=== PATIENT | male | born 1975 | race African-American/Black ===

== ENCOUNTER 2016-11-14 19:31 | Emergency (ER) | payer OTHER ==
--- NOTE | 2016-11-14 22:21 | DIAGNOSTIC IMAGING REPORT ---
PROCEDURE: CT ABDOMEN/PELVIS W/O CONTRAST INDICATION: Hematuria and vomiting. TECHNIQUE: Noncontrast axial images were obtained of the entire abdomen and pelvis with sagittal and coronal reformations. COMPARISON: None. FINDINGS: ABDOMEN: Mild motion artifacts. Lung bases are clear. Heart size is normal. Liver, gallbladder, pancreas, spleen, adrenal glands, kidneys and abdominal aorta are normal. Nonspecific bowel gas pattern. PELVIS: IMPRESSION: 1. All CT scans at this facility use dose modulation, iterative reconstruction, and/or weight-based dosing when appropriate to reduce radiation dose to as low as reasonably achievable.
--- NOTE | 2016-11-14 22:29 | ED ORDER SUMMARY ---
..... Patient: NANCY BLEDSOE JR OrderSheet [facility] VisitID: [id number] [address] [place] [address] 41y, M Registration Date/Time: 11/14/2016 ORDER SHEET Weight: 81.6 kg Allergies: No Known Drug Allergy GENERAL ORDERS: CBC w Diff Urgent (20:21 11/14/2016 HBivens A.R.N.P.) (Ack 20:24 CHagerty ER Ovens Supervisor) (20:31 EHassan R.N.) CMP Urgent (20:21 11/14/2016 HBivens A.R.N.P.) (Ack 20:24 CHagerty ER Ovens Supervisor) (20:31 EHassan R.N.) UA-Culture if indicated Urgent (20:21 11/14/2016 HBivens A.R.N.P.) (Ack 20:24 CHagerty ER Ovens Supervisor) (20:31 EHassan R.N.) Amylase Urgent (20:21 11/14/2016 HBivens A.R.N.P.) (Ack 20:24 CHagerty ER Ovens Supervisor) (20:31 EHassan R.N.) Lipase Urgent (20:21 11/14/2016 HBivens A.R.N.P.) (Ack 20:24 CHagerty ER Ovens Supervisor) (20:31 EHassan R.N.) Urine Drug Screen Urgent (20:24 11/14/2016 HBivens A.R.N.P.) (Ack 20:24 CHagerty ER Ovens Supervisor) (20:31 EHassan R.N.) CT Abd/Pel wo Cont Urgent (21:57 11/14/2016 HBivens A.R.N.P.) (Ack 21:58 CHagerty ER Ovens Supervisor) (22:16 MCampbell) MEDICATION ORDERS: GI Cocktail WHITE PO 30 mL with Lidocaine Viscous Mouth/Throat 15 mL, Maalox Plus Oral 15 mL (NOW) (22:30 11/14/2016 HBivens A.R.N.P.) (23:09 MCook R.N.) IV FLUIDS: IV NS : initial bolus 1000 mL (1000 mL/hr), then none - (NOW) (20:21 11/14/2016 HBivens A.R.N.P.) (20:32 EHassan R.N.) Toradol IV 30 mg (NOW) (20:11/14/2016 HBivens A.R.N.P.) (20:31 EHassan R.N.) Zofran IV 4 mg (NOW) (20:11/14/2016 HBivens A.R.N.P.) (20:32 EHassan R.N.) IV Saline Lock (20:11/14/2016 HBivens A.R.N.P.) (20:31 EHassan R.N.) Reglan IV 10 mg (NOW) (22:11/14/2016 HBivens A.R.N.P.) (22:53 MCook R.N.) Dilaudid IV 1 mg (HIGH ALERT MEDICATION, NOW) (22:11/14/2016 HBivens A.R.N.P.) (22:59 MCook R.N.) ORDER SHEET NOTES: [Electronically signed by Temi WynnRBelemN.PBelem (23:00 11/14/2016)] [Electronically signed by Chahya Matthews R.N. (23:44 11/14/2016)] [Electronically locked/signed by Chhaya Matthews R.N. (23:44 11/14/2016)]
--- NOTE | 2016-11-14 22:29 | ED NURSING NOTES ---
Clinical Report - Nurses [facility] [address] [place] [address] 11/14/2016 19:36 Patient: NANCY BLEDSOE JR TRIAGE Triage time 2000 PM. Acuity: LEVEL 3. Chief Complaint: ABDOMINAL PAIN, NAUSEA and VOMITING. Alert. No acute distress. SEPSIS SCREEN: Sepsis Screen. Negative (no infection suspected/documented). --20:08 Chhaya Matthews R.N. 20:00 11/14/16. BP: 166/118. HR: 100. RR: 18. O2 saturation: 100%. Temp: 98.3 F (oral). Pain level now: 04/08. --20:08 Chhaya Matthews R.N. Weight: 81.6 kg. Height/Length: 71 inches. BMI: 25.1. --20:03 Chhaya Matthews R.N. Medications MiraLax Oral. --20:07 Chhaya Matthews R.N. Thonzylamine-Chlophedianol Oral. --20:08 Chhaya Matthews R.N. Ranitidine HCl Oral. --20:08 Chhaya Matthews R.N. Allergies No Known Drug Allergy. --20:06 Chhaya Matthews R.N. Medication/allergy information source: the patient. --20:08 Chhaya Matthews R.N. History Arrived by private vehicle. Historian: patient. Accompanied by family. Primary physician (Mary). ( Pt states ongoing problem (2003) of abdominal pain and vomiting, this last episode started on Friday vomiting approximately over 7 times a day. Has been unable to eat or drink or keep anything down. Has seen multiple doctors for this without relief). Onset. (Friday - 4 days). He has had fever, nausea, vomiting, constipation and abdominal pain. Last oral intake by patient was 1 hour ago (1 hr). Treatment [employer]: (Miralax). PAST MEDICAL HX: Immunizations: up-to-date. SOCIAL HX: Former smoker. Occasional alcohol use. History of drug use: marijuana. (friday). No recent travel. No infectious disease exposure. No known contact with a sick individual. ABUSE ASSESSMENT: No report of abuse. SELF HARM ASSESSMENT: A self harm assessment was performed. The patient answered "no" to the question "Do you have thoughts of harming or killing yourself?" and "Have you recently had thoughts about harming or killing others?". FALL RISK ASSESSMENT: Fall risk assessment completed. No fall risk identified. NUTRITIONAL RISK ASSESSMENT: The nutritional risk assessment revealed no deficiencies. FUNCTIONAL ASSESSMENT: Functional assessment: no impairments noted. LEARNING NEEDS ASSESSMENT: The learning needs assessment revealed no barriers. SKIN INTEGRITY ASSESSMENT: Skin integrity risk assessment completed. No skin integrity risk identified. --20:08 Chhaya Matthews R.N. PROBLEMS: Gastroesophageal Reflux Disease. Back Pain. --20:08 Chhaya Matthews R.N. ADDITIONAL SURGERIES: Appendectomy. --20:08 Chhaya Matthews R.N. Interventions ID band on patient. --20:08 Chhaya Matthews R.N. PHYSICAL ASSESSMENT To room via wheelchair. GENERAL / NEURO / PSYCH: Alert. Oriented X 4. Appears in pain and in distress. HEENT: Mucous membranes are pink. RESPIRATORY: Respirations not labored. Breath sounds within normal limits. CVS: Capillary refill less than 2 seconds. GI / : The patient has had nausea. Abdomen soft and nontender. Abdominal tenderness in the upper abdomen, right upper quadrant and left upper quadrant. Bowel sounds within normal limits. SKIN: Skin is warm and dry. --20:30 Chhaya Matthews R.N. NURSING PROGRESS NOTES The initial plan of care for this patient has been created This plan of care was discussed with the patient. Patient ID band checked for patient name, birthdate and medical record number: patient confirmed. Blood samples drawn from the left forearm by nurse per protocol ; labeled in presence of the patient and sent to lab: rainbow set. Patient gowned. Reassurance given. Patient ID band checked for patient name, birthdate and medical record number: patient confirmed. Instructions provided to collect clean catch urine and patient verbalized understanding. Clean catch urine collected with return of william-colored clear urine; odor is normal; sample sent to lab for urinalysis. Specimen labeled in the presence of the patient. Urine not yellow. Two patient identifiers checked. Call light placed in reach. Side rails up. --20:31 Chhaya Matthews R.N. 20:26 11/14/2016 Toradol IVP 30 mg given over 30 second(s) via site #1. Allergies verified and confirmed 5 rights. IV patency established. IV site checked: no pain, redness, or swelling. IV flushed thoroughly pre- and post-medication administration. IVP given by RN. --20:31 Chhaya Matthews R.N. 20:11/14/2016 Site #1 started via IV in the left forearm with an 20g angiocath; one attempt. Blood drawn: rainbow set. Labeled in the presence of the patient and sent to the lab. --20:31 Chhaya Matthews R.N. 20:32 11/14/2016 Zofran (Ondansetron HCl) IVP 4 mg given over 2 minute(s) via site #1. Allergies verified and confirmed 5 rights. IV patency established. IV site checked: no pain, redness, or swelling. IV flushed thoroughly pre- and post-medication administration. IVP given by RN. --20:32 Chhaya Matthews R.N. 20:32 11/14/2016 Started bag #1 1000 mL IV Fluids IV NS (Saline); at 1000 mL/hr over 1 hour(s) via site #1 via IV pump. Allergies verified and confirmed 5 rights. IV patency established. IV site checked: no pain, redness, or swelling. IV flushed thoroughly pre- and post-medication administration. Completed per protocol. --20:32 Chhaya Matthews R.N. 21:11/14/2016 IV Fluids IV NS Discontinued: completed. Total amount infused: 1000 mL. IV patency established. IV site checked: no pain, redness, or swelling. IV flushed thoroughly. --21:29 Mushtaq Horton R.N. 21:11/14/2016 Zofran IVP Response: no adverse reaction pain is improving. Symptoms have improved. --21:31 Chhaya Matthews R.N. 21:11/14/16. BP: 183/112 taken on the left arm, while lying. HR: 71. RR: 19. O2 saturation: 99% on room air. Pain level now: 01/06. --21:32 Chhaya Matthews R.N. Reassurance given. Reassessment after fluids administered. He has had no adverse reaction. Overall patient status is the same- he states feels the same. GI / : The patient reports abdominal pain. Denies nausea. Call light placed in reach. --21:32 Chhaya Matthews R.N. 22:50 11/14/2016 Reglan (Metoclopramide HCl) IVP 10 mg given over 2 minute(s) via site #1. Allergies verified and confirmed 5 rights. IV patency established. IV site checked: no pain, redness, or swelling. IV flushed thoroughly pre- and post-medication administration. IVP given by RN. --22:53 Praminder Aguilar R.N. 22:59 11/14/2016 Dilaudid (HYDROmorphone HCl PF) IVP 1 mg given over 2 minute(s) via site #1. Allergies verified, confirmed 5 rights and sedative warning given to the patient. IV patency established. IV site checked: no pain, redness, or swelling. IV flushed thoroughly pre- and post-medication administration. IVP given by RN. --22:59 Parminder Aguilar R.N. 23:11/14/2016 GI COCKTAIL WHITE (Simethicone) PO Oral Suspension 30 mL given. Allergies verified and confirmed 5 rights. --23:09 Parminder Aguilar R.N. 23:08 11/14/2016 Site #1 removed. Bandage applied. --23:13 Parminder Aguilar R.N. DISPOSITION / DISCHARGE 22:59 11/14/16. BP: 163/112. HR: 60. RR: 16. O2 saturation: 98% on room air. Pain level now: 11/06. --22:59 Parminder Aguilar R.N. Departure time: 23:Nov 14 2016. Condition at departure: stable. The goals identified in the patient's plan of care were met. No learning barriers present. Discharge instructions provided and reviewed with the patient. Reviewed warnings (Pt instructed not to drive or cosume ETOH while taking Ultram.). Reviewed medication(s) side effects, precautions, dosing and course information. Prescription(s) given to the patient. Reviewed referral to a primary care physician for followup. Patient and digital forensics examiner verbalized understanding. Written instructions provided in Ch[place]. The patient was discharged home and accompanied by digital forensics examiner. He left the Emergency Department ambulatory and via private vehicle. Returned Materials Inspector driving. ( Pt lethargic post pain med administration, DC teaching completed with Pt and digital forensics examiner at bedside, digital forensics examiner verbalized understanding of DC POC and paperwork. Discussed reasons to return to ED (CP, SOB, continued bleeding, fever.).). --23:12 Parminder Aguilar R.N. 23:13 11/14/16. Temp: deferred. --23:13 Parminder Aguilar R.N. Locked/Released at 11/14/2016 23:44 by Chhaya Matthews R.N.
--- NOTE | 2016-11-14 22:29 | ED CLINICAL REPORT ---
Clinical Report - Physicians/Mid Levels [facility] [address] [place] [address] 11/14/2016 19:36 Patient: NANCY BLEDSOE JR Time Seen: 20:11; initial patient contact, initial documentation, patient care assumed. Arrived- By private vehicle. Historian- patient. HISTORY OF PRESENT ILLNESS Chief Complaint: VOMITING. This started about 4 days ago and is still present. It was abrupt in onset and has been constant. No recent travel. He has had nausea and constipation. He has had severe vomiting. The vomiting has occurred numerous times and has been bilious. No feculent emesis, blood-tinged emesis, coffee-grounds emesis, frankly bloody emesis or unusually dark emesis. No diarrhea, black stools, bloody stools, flank pain or history of possible bad food exposure. No known contact with a sick individual or change in routine. He has had constant abdominal pain. The pain is described as generalized. The pain is described as located in the central area of the abdomen, RLQ, suprapubic region, LLQ and lower abdomen. Has not recently been camping or on antibiotics. The illness is described as moderate. (was told his vomiting was related to smoking pot, but never told he had cyclic vomiting syndrome or gastroparesis). Similar symptoms previously: Chronically, as bad. Recent medical care: Not recently seen/assessed. REVIEW OF SYSTEMS The patient has had a subjective fever. No difficulty with urination, dark urine, chest pain or difficulty breathing. All systems otherwise negative, except as recorded above. PAST HISTORY See nurses notes. PROBLEMS: Gastroesophageal Reflux Disease. Back Pain. --20:08 Chhaya Matthews R.N. ADDITIONAL SURGERIES: Appendectomy. --20:08 Chhaya Matthews R.N. SOCIAL HISTORY Former smoker. Occasional alcohol use. History of occasional drug use: marijuana. Recently used drugs days ago. No recent travel. Is a local resident. FAMILY HISTORY Negative. ADDITIONAL NOTES The nursing notes have been reviewed with agreement regarding the chief complaint, HPI, ROS, PMH and patient medications and allergies. PHYSICAL EXAM Vital Signs: 11/14/2016 20:00 BP: 166/118. HR: 100. RR: 18. O2 saturation: 100%. Temp: 98.3 F. Pain level now: 04/08. Have been reviewed as abnormal and appear to be correct. Hypertensive. Heart rate normal. Respiratory rate normal. Temperature normal. Oxygen saturation normal. Appearance: Alert. Oriented X3. No acute distress. (hiccups on exam). Eyes: Pupils equal, round and reactive to light. Eyes normal inspection. Neck: Normal inspection. Neck supple. CVS: Normal heart rate and rhythm. Heart sounds normal. Pulses normal. Respiratory: No respiratory distress. Breath sounds normal. Abdomen: Soft and nontender. Bowel sounds normal. No organomegaly. No mass. Back: Normal inspection. Skin: Skin warm and dry. Normal skin color. No rash. Normal skin turgor. Extremities: Extremities exhibit normal ROM. No lower extremity edema. Neuro: Oriented X 3. No motor deficit. No sensory deficit. LABS, X-RAYS, AND EKG Abdominal CT: . Addendum created at 11/14/2016 10:25:52 PM: Pelvis: Appendectomy. Normal bladder. There is no pelvic mass, inflammatory changes or free fluid. Bones are unremarkable. Impression: 1. Appendectomy 2. Otherwise negative CT abdomen/pelvis 3. Results discussed with Temi Wynn Addendum by: Facundo Blackwell MD. The study was interpreted by the radiologist and discussed with the radiologist. Interpretation time: 2224. Laboratory Tests: UA-Culture if indicated: (KAMALA: 11/14/2016 20:30) ( MsgRcvd 11/14/2016 21:28) Final results Test Result Flag Units (Reference) URINE COLOR YELLOW URINE APPEARANCE CLEAR URINE GLUCOSE NEGATIVE (NEGATIVE) URINE BILIRUBIN NEGATIVE (NEGATIVE) URINE KETONE 1+ (NEGATIVE) URINE SPECIFIC GRAVITY 1.025 (1.010-1.030) URINE PH 6.5 (5.0-8.0) URINE PROTEIN 1+ (NEGATIVE) URINE UROBILINOGEN 0.2 EU/dL (0.2-1.0) URINE NITRITE NEGATIVE (NEGATIVE) URINE BLOOD 1+ (NEGATIVE) URINE LEUK ESTERASE NEGATIVE (NEGATIVE) URINE RBC 10-25 rbc/hpf (0-1) URINE WBC NONE SEEN wbc/hpf (0-1) URINE EPITHELIAL CELLS 0-1 EPI/hpf (0-5) URINE BACTERIA TRACE (<1+) (NONE SEEN) URINE COMMENT CULT NOT INDICATED 1+ MUCOUSURINE CULTURES ARE SET-UP BASED ON THE FOLLOWING CRITERIA:POSITIVE NITRITEPOSITIVE LEUKOCYTE ESTERASEGREATER THAN 10 WHITE BLOOD CELLSMODERATE (2+) OR GREATER BACTERIA CBC w Diff: (KAMALA: 11/14/2016 20:20) ( [facility] 11/14/2016 20:48) Final results Test Result Flag Units (Reference) WHITE BLOOD COUNT 10.5 K/uL (4.5-11.5) RED BLOOD COUNT 5.34 M/uL (4.50-5.90) HEMOGLOBIN 16.5 gm/dL (13.5-17.5) HEMATOCRIT 49.4 % (41.0-53.0) MEAN CELL VOLUME 93 fL (80-100) MEAN CORPUSCULAR HGB 31 pg (26-34) MEAN CORPUSCULAR HGB CONC 33 g/dL (31-37) RED CELL DISTRIBUTION WIDTH 14.4 % (11.6-14.8) PLATELET COUNT 166 K/uL (150-400) NEUTROPHIL % 72.0 % (50-75) LYMPH % 18.9 L % (25-40) MONO % 7.9 % (3-14) EOSINOPHIL % 0.2 % (0-4) BASOPHIL % 1.0 % (0-2) Urine Drug Screen: (KAMALA: 11/14/2016 20:30) ( [facility] 11/14/2016 21:28) Final results Test Result Flag Units (Reference) AMPHETAMINE/METHAMPHETAMINE NEGATIVE (NEGATIVE) BARBITURATE NEGATIVE (NEGATIVE) BENZODIAZEPINE NEGATIVE (NEGATIVE) CANNABINOID POSITIVE H (NEGATIVE) COCAINE NEGATIVE (NEGATIVE) ECSTASY NEGATIVE (NEGATIVE) METHADONE NEGATIVE (NEGATIVE) OPIATE NEGATIVE (NEGATIVE) The urine drug screen is a qualitative screening test fordrug overdose and abuse. All screen results should beconsidered as presumptive.Drugs screened for are as follows:BenzodiazepinesCocaineAmphetamines/MetamphetaminesTHC (Tetrahydrocannabinol)OpiatesBarbituratesEcstasyMethadonePositive results are unconfirmed. For confirmation, notifythe lab for the specimen to be sent to the reference lab.All confirmations must be performed by a differentmethodology.The ingestion of natural herbal and plant productscontaining Ephedra/Ephedra metabolites can produce in urineone or more substances capable of cross reacting withamphetamine/methamphetamine immunoassays. These testsprovide a preliminary result only. A more specificalternative chemical method must be used to obtain aconfirmed analytical result. CMP: (KAMALA: 11/14/2016 20:20) ( MsgRcvd 11/14/2016 21:15) Final results Test Result Flag Units (Reference) GLUCOSE 110 mg/dL (70-110) BUN 15 mg/dL (7-18) CREATININE 0.9 mg/dL (0.6-1.3) Estimated GFR >60 mL/min Estimated GFR- >60 mL/min Note: Persistent reduction over 3 months in eGFR<60 mL/min/1.73 m2 defines CKD. Patients with eGFR values>=60 mL/min/1.73 m2 may also have CKD if evidence ofpersistent proteinuria. Additional information may be foundat www.kidney.org. SODIUM 140 mmol/L (136-145) POTASSIUM 3.5 mmol/L (3.5-5.1) CHLORIDE 102 mmol/L (98-107) CARBON DIOXIDE 24 mmol/L (21-32) CALCIUM 9.1 mg/dL (8.5-10.1) TOTAL PROTEIN 8.4 H g/dL (6.4-8.2) ALBUMIN 4.2 g/dL (3.3-5.0) BILIRUBIN, TOTAL 1.1 H mg/dL (0.0-1.0) ALKALINE PHOSPHATASE 85 U/L (46-116) AST (SGOT) 27 U/L (15-37) ALT (SGPT) 31 U/L (12-78) LIPASE 139 U/L (73-393) AMYLASE 80 U/L (25-115) . PROGRESS AND PROCEDURES Course of Care: 2199. spouse updated with current results, pt in ct. Patient and spouse counseled in person regarding the patient's stable condition, test results and diagnosis. 22:29. Differential Diagnosis: I considered gastritis, peptic ulcer disease, ischemia, gastroesophageal reflux disease, gastroparesis, Crohn's disease, small bowel obstruction, colonic obstruction, colon cancer, gastroenteritis, cholecystitis, pancreatitis, viral syndrome, enterocolitis, urinary tract infection, hepatitis, sepsis, drugs and psychogenic etiology as a possible cause of vomiting in this patient. This is a partial list of diagnoses considered. Above considerations are based on history, physical exam, reassessment and laboratory data. Differential diagnosis was discussed with patient. Disposition: Discharged home in good and improved condition (22:29). Condition: good and stable. CLINICAL IMPRESSION Intractable vomiting with nausea. No dehydration or volume depletion. Not bilious. Microscopic hematuria. No gross hematuria. INSTRUCTIONS Take clear liquids only (frequent sips) for the next 24 hours until better. May continue medications with sips only. Advance diet as tolerated. Avoid. (HTN). Warnings: GENERAL WARNINGS: Return or contact your physician immediately if your condition worsens or changes unexpectedly, if not improving as expected, or if other problems arise. SPECIFICALLY, return if you develop pain in the abdomen or pelvis, fever, the inability to keep fluids down, blood in vomitus, blood in diarrhea, fainting or lightheadedness. Prescription Medications: Cipro 500 mg: take 1 tab orally every 12 hours for 10 days. Dispense twenty (20). No refills. Substitution is permissible. Bentyl 20 mg tablets: take 1 orally every 6 hours as needed. Dispense thirty (30). No refills. Substitution is permissible. Ultram 50 mg tablets: take 1-2 orally every 6 hours as needed for pain. Dispense twenty (20). No refills. Substitution is permissible. Reglan 10 mg tablets: take 1 orally every 6 hours as needed for nausea or vomiting. Dispense twenty (20). No refills. Follow-up: Follow up with your doctor in about two days even if well. Call for an appointment. Summary of care provided to patient and family. Understanding of the discharge instructions verbalized by patient and family. (Electronically signed by Temi Wynn A.R.N.P. 11/14/2016 23:00)
--- NOTE | 2016-11-14 22:29 | ED ORDER SUMMARY ---
..... Patient: NANCY BLEDSOE JR OrderSheet [facility] VisitID: [id number] [address] [place] [address] 41y, M Registration Date/Time: 11/14/2016 ORDER SHEET Weight: 81.6 kg Allergies: No Known Drug Allergy GENERAL ORDERS: CBC w Diff Urgent (20:21 11/14/2016 HBivens A.R.N.P.) (Ack 20:24 CHagerty ER Capsule Inspector) (20:31 EHassan R.N.) CMP Urgent (20:21 11/14/2016 HBivens A.R.N.P.) (Ack 20:24 CHagerty ER Capsule Inspector) (20:31 EHassan R.N.) UA-Culture if indicated Urgent (20:21 11/14/2016 HBivens A.R.N.P.) (Ack 20:24 CHagerty ER Capsule Inspector) (20:31 EHassan R.N.) Amylase Urgent (20:21 11/14/2016 HBivens A.R.N.P.) (Ack 20:24 CHagerty ER Capsule Inspector) (20:31 EHassan R.N.) Lipase Urgent (20:21 11/14/2016 HBivens A.R.N.P.) (Ack 20:24 CHagerty ER Capsule Inspector) (20:31 EHassan R.N.) Urine Drug Screen Urgent (20:24 11/14/2016 HBivens A.R.N.P.) (Ack 20:24 CHagerty ER Capsule Inspector) (20:31 EHassan R.N.) CT Abd/Pel wo Cont Urgent (21:57 11/14/2016 HBivens A.R.N.P.) (Ack 21:58 CHagerty ER Capsule Inspector) (22:16 MCampbell) MEDICATION ORDERS: GI Cocktail WHITE PO 30 mL with Lidocaine Viscous Mouth/Throat 15 mL, Maalox Plus Oral 15 mL (NOW) (22:30 11/14/2016 HBivens A.R.N.P.) (23:09 MCook R.N.) IV FLUIDS: IV NS : initial bolus 1000 mL (1000 mL/hr), then none - (NOW) (20:21 11/14/2016 HBivens A.R.N.P.) (20:32 EHassan R.N.) Toradol IV 30 mg (NOW) (20:11/14/2016 HBivens A.R.N.P.) (20:31 EHassan R.N.) Zofran IV 4 mg (NOW) (20:11/14/2016 HBivens A.R.N.P.) (20:32 EHassan R.N.) IV Saline Lock (20:11/14/2016 HBivens A.R.N.P.) (20:31 EHassan R.N.) Reglan IV 10 mg (NOW) (22:11/14/2016 HBivens A.R.N.P.) (22:53 MCook R.N.) Dilaudid IV 1 mg (HIGH ALERT MEDICATION, NOW) (22:11/14/2016 HBivens A.R.N.P.) (22:59 MCook R.N.) ORDER SHEET NOTES: [Electronically signed by Temi WynnRBelemN.PBelem (23:00 11/14/2016)] [Electronically signed by Chhaya Matthews R.N. (23:44 11/14/2016)] [Electronically locked/signed by Chhaya Matthews R.N. (23:44 11/14/2016)]
--- NOTE | 2016-11-14 22:29 | ED NURSING NOTES ---
Clinical Report - Nurses [facility] [address] [place] [address] 11/14/2016 19:36 Patient: NANCY BLEDSOE JR TRIAGE Triage time 2000 PM. Acuity: LEVEL 3. Chief Complaint: ABDOMINAL PAIN, NAUSEA and VOMITING. Alert. No acute distress. SEPSIS SCREEN: Sepsis Screen. Negative (no infection suspected/documented). --20:08 Chhaya Matthews R.N. 20:00 11/14/16. BP: 166/118. HR: 100. RR: 18. O2 saturation: 100%. Temp: 98.3 F (oral). Pain level now: 04/08. --20:08 Chhaya Matthews R.N. Weight: 81.6 kg. Height/Length: 71 inches. BMI: 25.1. --20:03 Chhaya Matthews R.N. Medications MiraLax Oral. --20:07 Chhaya Matthews R.N. Thonzylamine-Chlophedianol Oral. --20:08 Chhaya Matthews R.N. Ranitidine HCl Oral. --20:08 Chhaya Matthews R.N. Allergies No Known Drug Allergy. --20:06 Chhaya Matthews R.N. Medication/allergy information source: the patient. --20:08 Chhaya Matthews R.N. History Arrived by private vehicle. Historian: patient. Accompanied by family. Primary physician (Mary). ( Pt states ongoing problem (2003) of abdominal pain and vomiting, this last episode started on Friday vomiting approximately over 7 times a day. Has been unable to eat or drink or keep anything down. Has seen multiple doctors for this without relief). Onset. (Friday - 4 days). He has had fever, nausea, vomiting, constipation and abdominal pain. Last oral intake by patient was 1 hour ago (1 hr). 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 PAST MEDICAL HX: Immunizations: up-to-date. SOCIAL HX: Former smoker. Occasional alcohol use. History of drug use: marijuana. (friday). No recent travel. No infectious disease exposure. No known contact with a sick individual. ABUSE ASSESSMENT: No report of abuse. SELF HARM ASSESSMENT: A self harm assessment was performed. The patient answered "no" to the question "Do you have thoughts of harming or killing yourself?" and "Have you recently had thoughts about harming or killing others?". FALL RISK ASSESSMENT: Fall risk assessment completed. No fall risk identified. NUTRITIONAL RISK ASSESSMENT: The nutritional risk assessment revealed no deficiencies. FUNCTIONAL ASSESSMENT: Functional assessment: no impairments noted. LEARNING NEEDS ASSESSMENT: The learning needs assessment revealed no barriers. SKIN INTEGRITY ASSESSMENT: Skin integrity risk assessment completed. No skin integrity risk identified. --20:08 Chhaya Matthews R.N. PROBLEMS: Gastroesophageal Reflux Disease. Back Pain. --20:08 Chhaya Matthews R.N. ADDITIONAL SURGERIES: Appendectomy. --20:08 Chhaya Matthews R.N. Interventions ID band on patient. --20:08 Chhaya Matthews R.N. PHYSICAL ASSESSMENT To room via wheelchair. GENERAL / NEURO / PSYCH: Alert. Oriented X 4. Appears in pain and in distress. HEENT: Mucous membranes are pink. RESPIRATORY: Respirations not labored. Breath sounds within normal limits. CVS: Capillary refill less than 2 seconds. GI / : The patient has had nausea. Abdomen soft and nontender. Abdominal tenderness in the upper abdomen, right upper quadrant and left upper quadrant. Bowel sounds within normal limits. SKIN: Skin is warm and dry. --20:30 hChaya Matthews R.N. NURSING PROGRESS NOTES The initial plan of care for this patient has been created This plan of care was discussed with the patient. Patient ID band checked for patient name, birthdate and medical record number: patient confirmed. Blood samples drawn from the left forearm by nurse per protocol ; labeled in presence of the patient and sent to lab: rainbow set. Patient gowned. Reassurance given. Patient ID band checked for patient name, birthdate and medical record number: patient confirmed. Instructions provided to collect clean catch urine and patient verbalized understanding. Clean catch urine collected with return of william-colored clear urine; odor is normal; sample sent to lab for urinalysis. Specimen labeled in the presence of the patient. Urine not yellow. Two patient identifiers checked. Call light placed in reach. Side rails up. --20:31 Chhaya Matthews R.N. 20:26 11/14/2016 Toradol IVP 30 mg given over 30 second(s) via site #1. Allergies verified and confirmed 5 rights. IV patency established. IV site checked: no pain, redness, or swelling. IV flushed thoroughly pre- and post-medication administration. IVP given by RN. --20:31 Chhaya Matthews R.N. 20:11/14/2016 Site #1 started via IV in the left forearm with an 20g angiocath; one attempt. Blood drawn: rainbow set. Labeled in the presence of the patient and sent to the lab. --20:31 Chhaya Matthews R.N. 20:32 11/14/2016 Zofran (Ondansetron HCl) IVP 4 mg given over 2 minute(s) via site #1. Allergies verified and confirmed 5 rights. IV patency established. IV site checked: no pain, redness, or swelling. IV flushed thoroughly pre- and post-medication administration. IVP given by RN. --20:32 Chhaya aMtthews R.N. 20:32 11/14/2016 Started bag #1 1000 mL IV Fluids IV NS (Saline); at 1000 mL/hr over 1 hour(s) via site #1 via IV pump. Allergies verified and confirmed 5 rights. IV patency established. IV site checked: no pain, redness, or swelling. IV flushed thoroughly pre- and post-medication administration. Completed per protocol. --20:32 Chhaya Matthews R.N. 21:11/14/2016 IV Fluids IV NS Discontinued: completed. Total amount infused: 1000 mL. IV patency established. IV site checked: no pain, redness, or swelling. IV flushed thoroughly. --21:29 Mushtaq Horton R.N. 21:11/14/2016 Zofran IVP Response: no adverse reaction pain is improving. Symptoms have improved. --21:31 Chhaya Matthews R.N. 21:11/14/16. BP: 183/112 taken on the left arm, while lying. HR: 71. RR: 19. O2 saturation: 99% on room air. Pain level now: 01/06. --21:32 Chhaya Matthews R.N. Reassurance given. Reassessment after fluids administered. He has had no adverse reaction. Overall patient status is the same- he states feels the same. GI / : The patient reports abdominal pain. Denies nausea. Call light placed in reach. --21:32 Chhaya Matthews R.N. 22:50 11/14/2016 Reglan (Metoclopramide HCl) IVP 10 mg given over 2 minute(s) via site #1. Allergies verified and confirmed 5 rights. IV patency established. IV site checked: no pain, redness, or swelling. IV flushed thoroughly pre- and post-medication administration. IVP given by RN. --22:53 Parminder Aguilar R.N. 22:59 11/14/2016 Dilaudid (HYDROmorphone HCl PF) IVP 1 mg given over 2 minute(s) via site #1. Allergies verified, confirmed 5 rights and sedative warning given to the patient. IV patency established. IV site checked: no pain, redness, or swelling. IV flushed thoroughly pre- and post-medication administration. IVP given by RN. --22:59 Parminder Aguilar R.N. 23:11/14/2016 GI COCKTAIL WHITE (Simethicone) PO Oral Suspension 30 mL given. Allergies verified and confirmed 5 rights. --23:09 Parminder Aguilar R.N. 23:08 11/14/2016 Site #1 removed. Bandage applied. --23:13 Parminder Aguilar R.N. DISPOSITION / DISCHARGE 22:59 11/14/16. BP: 163/112. HR: 60. RR: 16. O2 saturation: 98% on room air. Pain level now: 11/06. --22:59 Parminder Aguilar R.N. Departure time: 23:Nov 14 2016. Condition at departure: stable. The goals identified in the patient's plan of care were met. No learning barriers present. Discharge instructions provided and reviewed with the patient. Reviewed warnings (Pt instructed not to drive or cosume ETOH while taking Ultram.). Reviewed medication(s) side effects, precautions, dosing and course information. Prescription(s) given to the patient. Reviewed referral to a primary care physician for followup. Patient and seafood packer verbalized understanding. Written instructions provided in Andorran. The patient was discharged home and accompanied by seafood packer. He left the Emergency Department ambulatory and via private vehicle. [employer]umber [employer] driving. ( Pt lethargic post pain med administration, DC teaching completed with Pt and seafood packer at bedside, seafood packer verbalized understanding of DC POC and paperwork. Discussed reasons to return to ED (CP, SOB, continued bleeding, fever.).). --23:12 Parminder Aguilar R.N. 23:13 11/14/16. Temp: deferred. --23:13 Parminder Aguilar R.N. Locked/Released at 11/14/2016 23:44 by Chhaya Matthews R.N.
--- NOTE | 2016-11-14 23:44 | ED MAR SUMMARY ---
..... Medication Administration Record [facility] [address] [place] [address] Patient: NANCY BLEDSOE Visit ID: [id number] 41y, M Weight: 81.6 kg Height/Length: 71 in BMI: 25.1 ALLERGIES: No Known Drug Allergy Given 20:26 11/14/2016 Chhaya Matthews R.N. Medication Administered: TORADOL [IVP], Dose: 30 mg IVP over 30 second(s), Site: #1. Medication Ordered: Toradol IV 30 mg (NOW). Given 20:32 11/14/2016 Chhaya Matthews R.N. Medication Administered: ZOFRAN [IVP] (ONDANSETRON HCL), Dose: 4 mg IVP over 2 minute(s), Site: #1 left forearm. Medication Ordered: Zofran IV 4 mg (NOW). Start 20:32 11/14/2016 Chhaya Matthews R.N., Stop 21:29 11/14/2016 Mushtaq Horton R.N. Medication Administered: IV NS (SALINE), Dose: IV Fluids over 1 hour(s), Rate: 1000 mL/hr, Dispensed: 1000 mL bag, Site: #1 left forearm. Medication Ordered: IV NS : initial bolus 1000 mL (1000 mL/hr), then none - (NOW). Given 22:50 11/14/2016 Parminder Aguilar R.N. Medication Administered: REGLAN [IVP] (METOCLOPRAMIDE HCL), Dose: 10 mg IVP over 2 minute(s), Site: #1 left forearm. Medication Ordered: Reglan IV 10 mg (NOW). Given 22:59 11/14/2016 Parminder Aguilar R.N. Medication Administered: DILAUDID [IVP] (HYDROMORPHONE HCL PF), Dose: 1 mg IVP over 2 minute(s), Site: #1 left forearm. Medication Ordered: Dilaudid IV 1 mg (HIGH ALERT MEDICATION, NOW). Given 23:05 11/14/2016 Parminder Aguilar R.N. Medication Administered: GI COCKTAIL WHITE [PO] (SIMETHICONE), Dose: 30 mL Oral Suspension PO. Medication Ordered: GI Cocktail WHITE PO 30 mL with Lidocaine Viscous Mouth/Throat 15 mL, Maalox Plus Oral 15 mL (NOW).
--- NOTE | 2016-11-14 23:44 | ED MED RECONCILIATION SUMMARY ---
Patient: NANCY BLEDSOE JR Medication Reconciliation Report [facility] VisitID: [id number] [place] [address] 41y, M Registration Date/Time: 11/14/2016 Weight: 81.6 kg Height/Length: 71 in. BMI: 25.1 ALLERGIES: No Known Drug Allergy The patient's Home Medications are listed below: THE FOLLOWING MEDICATIONS NEED TO BE RECONCILED: MiraLax Oral Ranitidine HCl Oral Thonzylamine-Chlophedianol Oral The source(s) of the original Home Medication information: patient The following Medications were given to the patient in the Emergency Department: Toradol [IVP] IVP 30 mg, administered: 11/14/2016 8:26:00 PM Zofran [IVP] IVP 4 mg, administered: 11/14/2016 8:32:00 PM IV NS IV Fluids bolus 0, then 1000 mL/hr, administered: 11/14/2016 8:32:00 PM Reglan [IVP] IVP 10 mg, administered: 11/14/2016 10:50:00 PM Dilaudid [IVP] IVP 1 mg, administered: 11/14/2016 10:59:00 PM GI COCKTAIL WHITE [PO] PO 30 mL, administered: 11/14/2016 11:05:00 PM The following Medications were prescribed to the patient: Cipro 500 mg: take 1 tab orally every 12 hours for 10 days. Dispense twenty (20). No refills. Substitution is permissible. -- Temi Wynn A.R.N.P. Bentyl 20 mg tablets: take 1 orally every 6 hours as needed. Dispense thirty (30). No refills. Substitution is permissible. -- Temi Wynn A.R.N.P. Ultram 50 mg tablets: take 1-2 orally every 6 hours as needed for pain. Dispense twenty (20). No refills. Substitution is permissible. -- Temi Wynn A.R.N.P. Reglan 10 mg tablets: take 1 orally every 6 hours as needed for nausea or vomiting. Dispense twenty (20). No refills. -- Temi Wynn A.R.N.P.
--- NOTE | 2016-11-14 23:44 | ED DISCHARGE INSTRUCTIONS ---
Patient: NANCY BLEDSOE JR General Instructions [facility] VisitID: [id number] [place] [address] 41y, M Registration Date/Time: 11/14/2016 Intractable vomiting with nausea. No dehydration or volume depletion. Not bilious. Microscopic hematuria. No gross hematuria. INSTRUCTIONS Take clear liquids only (frequent sips) for the next 24 hours until better. May continue medications with sips only. Advance diet as tolerated. Avoid. (HTN). Warnings: GENERAL WARNINGS: Return or contact your physician immediately if your condition worsens or changes unexpectedly, if not improving as expected, or if other problems arise. SPECIFICALLY, return if you develop pain in the abdomen or pelvis, fever, the inability to keep fluids down, blood in vomitus, blood in diarrhea, fainting or lightheadedness. Prescription Medications: Cipro 500 mg: take 1 tab orally every 12 hours for 10 days. Dispense twenty (20). No refills. Substitution is permissible. Bentyl 20 mg tablets: take 1 orally every 6 hours as needed. Dispense thirty (30). No refills. Substitution is permissible. Ultram 50 mg tablets: take 1-2 orally every 6 hours as needed for pain. Dispense twenty (20). No refills. Substitution is permissible. Reglan 10 mg tablets: take 1 orally every 6 hours as needed for nausea or vomiting. Dispense twenty (20). No refills. Follow-up: Follow up with your doctor in about two days even if well. Call for an appointment. Summary of care provided to patient and family. Understanding of the discharge instructions verbalized by patient and family. ADDITIONAL INFORMATION Vomiting [6Yr-Adult] Vomiting is a common symptom that may be due to different causes. These include gastroenteritis ("stomach flu"), food poisoning and gastritis. There are other more serious causes of vomiting which may be hard to diagnose early in the illness. Therefore, it is important to watch for the warning signs listed below. The main danger from repeated vomiting is dehydration. This is due to excess loss of water and minerals from the body. When this occurs, body fluids must be replaced. Home Care: If symptoms are severe, rest at home for the next 24 hours. You may use acetaminophen (Tylenol) or ibuprofen (Motrin, Advil) to control fever, unless another medicine was prescribed. [NOTE : If you have chronic liver or kidney disease or ever had a stomach ulcer or GI bleeding, talk with your doctor before using these medicines.] (Aspirin should never be used in anyone under 18 years of age who is ill with a fever. It may cause severe liver damage.) Avoid tobacco and alcohol use, which may worsen your symptoms. If medicines for vomiting were prescribed, take as directed. Once vomiting stops, then follow these guidelines: During The First 12-24 Hours follow the diet below: FRUIT JUICES: Apple, grape juice, clear fruit drinks, and electrolyte replacement drinks. BEVERAGES: Soft drinks without caffeine; mineral water (plain or flavored), decaffeinated tea and coffee. SOUPS: Clear broth, consomm and bouillon DESSERTS: Plain gelatin, popsicles and fruit juice bars. As you feel better, you may add 6-8 ounces of yogurt per day. During The Next 24 Hours you may add the following to the above: Hot cereal, plain toast, bread, rolls, crackers Plain noodles, rice, mashed potatoes, chicken noodle or rice soup Unsweetened canned fruit (avoid pineapple), bananas Limit caffeine and chocolate. No spices or seasonings except salt. During The Next 24 Hours Gradually resume a normal diet, as you feel better and your symptoms lessen. Follow Up with your doctor as advised if you are not improving over the next 2-3 days. Get Prompt Medical Attention if any of the following occur: Constant right-sided lower abdominal pain or increasing general abdominal pain Continued vomiting (unable to keep liquids down) for 24 hours Frequent diarrhea (more than 5 times a day); blood (red or black color) or mucus in diarrhea Reduced urine output or extreme thirst Weakness, dizziness or fainting Unusually drowsy or confused Fever of 100.4F (38C) oral or higher, not better with fever medication Yellow color of the eyes or skin Blood In The Urine Blood in the urine ("hematuria") has many possible causes. If it occurs after an injury (such as a car accident or fall), it is most often a sign of bruising to the kidney or bladder. Common medical causes of blood in the urine include urinary tract infection, kidney stone, inflammation, tumors, or certain other diseases of the kidney or bladder. Menstruation can cause blood to appear in the urine sample, although it is not coming from the urinary tract. If only a trace amount of blood is present, it will show up on the urine test, even though the urine may be yellow and not pink or red. This may occur with any of the above conditions, as well as heavy exercise or high fever. In this case, your doctor may want to repeat the urine test on another day. This will show if the blood is still present. If so, then other tests can be done to find out the cause. Home Care: If your urine does not appear bloody (pink, brown or red) then you do not need to restrict your activity in any way. If you can see blood in your urine, rest and avoid heavy exertion until your next exam. Do not use aspirin or anti-inflammatory medicine like ibuprofen (Motrin, Advil) or naproxen (Naprosyn, Aleve). These thin the blood and may increase bleeding. Follow Up with your doctor or as advised by our staff. If you were injured and had blood in your urine, you should have a repeat urine test in 1-2 days. Contact your doctor or return to this facility for this test. [NOTE: A radiologist will review any X-rays that were taken. We will notify you of any new findings that may affect your care.] Get Prompt Medical Attention if any of the following occur: Bright red blood or blood clots in the urine (if a new symptom) Weakness, dizziness or fainting New groin, abdominal or back pain Fever of 100.4F (38C) or higher, or as directed by your healthcare provider Repeated vomiting Bleeding from nose, gums or easy bruising Bladder Infection,Male (Adult) A bladder infection ("cystitis" or "UTI") usually causes a constant urge to urinate, and a burning when passing urine. Urine may be cloudy, smelly or dark. There may be also be pain in the lower abdomen. Cystitis in males is not common. It may be caused by a partial blockage in the urinary system that keeps the bladder from emptying completely. This is most often related to an enlarged prostate gland. Home Care: Drink lots of fluids (at least 6-8 glasses a day). This will flush the bacteria out of your bladder. Avoid sexual intercourse until your symptoms are gone. Avoid caffeine, alcohol, and spicy foods. They could irritate the bladder. A bladder infection is treated with antibiotics. You may also be given Pyridium (generic - phenazopyridine) to reduce burning with urination. This will cause urine to become a bright orange color, which can stain clothing. Follow Up with your doctor or this facility if ALL symptoms have not cleared within five days. It is important to keep your follow up appointment to discuss with your doctor the need for further tests of the urinary tract. Get Prompt Medical Attention if any of the following occur: Fever of 100.4F (38C) or higher, or as directed by your healthcare provider No improvement by the third day of treatment Increasing back or abdominal pain Repeated vomiting; unable to keep medicine down Weakness, dizziness or fainting Clear Liquid Diet Clear liquids are any liquid that you can see through as well as those that are very easy to digest. This is used while the body is recovering from irritation or infection of the stomach or intestinal tract. It may also be used before special procedures or surgery. This diet is to be used no more than three days. You may include the following items. Adults Adults should drink a total of 23 quarts of liquid per day. It may be easier to drink small frequent servings rather than a few large ones. Liquids can include: Fruit juices.Strained orange juice or lemonade (no pulp), apple, grape and cranberry juice, clear fruit drinks, sports drinks Beverages.Sport drinks, sodas, mineral water (plain or flavored), tea, black coffee, liquid gelatin (add twice the recommended amount of water) Soups.Clear broth, consomm, bouillon Desserts.Plain gelatin, popsicles, fruit juice bars Children Over 2 years old The following liquids are acceptable for children over age 2: Fruit juices.Strained orange juice or lemonade (no pulp), apple, grape and cranberry juice, clear fruit drinks Beverages. Sports drinks, sodas, mineral water (plain or flavored), tea, liquid gelatin (add twice the recommended amount of water) Soups. Clear broth, consomm, bouillon Desserts. Plain gelatin, popsicles, fruit juice bars Children under 2 years old Oral rehydration fluids such are available at drug stores and most grocery stores without a prescription. [place] Diet A bland diet is used for patients with an upset stomach. It consists of foods that are mild and easy to digest. It is better to eat small frequent meals rather than three large meals a day. BEVERAGES OK: Fruit juices, non-caffeinated teas and coffee, non-carbonated heredia AVOID: Carbonated beverage, caffeinated tea and coffee, all alcoholic beverages BREAD OK: Refined white, wheat or rye bread, william or soda crackers, Rand toast, plain rolls, bagels AVOID: Whole-grain bread CEREAL OK: Refined cereals: cooked or ready to eat AVOID: Whole grain cereals and granola, or those containing bran, seeds or nuts DESSERTS OK: Peanut butter and all others except those to "avoid" AVOID: Chocolate, cocoa, coconut, popcorn, nuts, seeds, jam, marmalade FRUITS OK: Canned, cooked, frozen or fresh fruits without seeds or tough skin AVOID: Olives, skin and seeds of fruit MEATS OK: All fresh or preserved meat, fish and fowl AVOID: Any that are prepared with those spices to "avoid" CHEESE & EGGS OK: Eggs, cottage cheese, cream cheese, other cheeses AVOID: All cheeses made with those spices to "avoid" POTATOES & PASTA OK: Potato, rice, macaroni, noodles, spaghetti AVOID: None SOUPS OK: All soups without heavy seasoning AVOID: Soups made with those spices to "avoid" VEGETABLES OK: Canned, cooked, fresh or frozen mildly flavored vegetables without seeds, skins or coarse fiber AVOID: Vegetables prepared with those spices to "avoid"; skin and seeds of vegetables and those with coarse fiber SPICES OK: Salt, lemon and [place] juice, vinegar, all extracts, ern[place], cinnamon, thyme, mace, allspice, paprika AVOID: [place] powder, cloves, pepper, seed spices, garlic, gravy pickles, highly seasoned salad dressings Clear Liquid Diet Clear liquids are any liquid that you can see through as well as those that are very easy to digest. This is used while the body is recovering from irritation or infection of the stomach or intestinal tract. It may also be used before special procedures or surgery. This diet is to be used no more than three days. You may include the following items. Adults Adults should drink a total of 23 quarts of liquid per day. It may be easier to drink small frequent servings rather than a few large ones. Liquids can include: Fruit juices.Strained orange juice or lemonade (no pulp), apple, grape and cranberry juice, clear fruit drinks, sports drinks Beverages.Sport drinks, sodas, mineral water (plain or flavored), tea, black coffee, liquid gelatin (add twice the recommended amount of water) Soups.Clear broth, consomm, bouillon Desserts.Plain gelatin, popsicles, fruit juice bars Children Over 2 years old The following liquids are acceptable for children over age 2: Fruit juices.Strained orange juice or lemonade (no pulp), apple, grape and cranberry juice, clear fruit drinks Beverages. Sports drinks, sodas, mineral water (plain or flavored), tea, liquid gelatin (add twice the recommended amount of water) Soups. Clear broth, consomm, bouillon Desserts. Plain gelatin, popsicles, fruit juice bars Children under 2 years old Oral rehydration fluids such are available at drug stores and most grocery stores without a prescription. Ciprofloxacin Hydrochloride Oral tablet What is this medicine? CIPROFLOXACIN (sip german FLOX a sin) is a quinolone antibiotic. It is used to treat certain kinds of bacterial infections. It will not work for colds, flu, or other viral infections. How should I use this medicine? Take this medicine by mouth with a glass of water. Follow the directions on the prescription label. Take your medicine at regular intervals. Do not take your medicine more often than directed. Take all of your medicine as directed even if you think your are better. Do not skip doses or stop your medicine early. You can take this medicine with food or on an empty stomach. It can be taken with a meal that contains dairy or calcium, but do not take it alone with a dairy product, like milk or yogurt or calcium-fortified juice. A special MedGuide will be given to you by the pharmacist with each prescription and refill. Be sure to read this information carefully each time. Talk to your binding stitcher regarding the use of this medicine in children. Special care may be needed. What side effects may I notice from receiving this medicine? Side effects that you should report to your doctor or health care transitions manager as soon as possible: - allergic reactions like skin rash, itching or hives, swelling of the face, lips, or tongue - breathing problems - confusion, nightmares or hallucinations - feeling faint or lightheaded, falls - irregular heartbeat - joint, muscle or tendon pain or swelling - pain or trouble passing urine -persistent headache with or without blurred vision - redness, blistering, peeling or loosening of the skin, including inside the mouth - seizure - unusual pain, numbness, tingling, or weakness Side effects that usually do not require medical attention (report to your doctor or health care transitions manager if they continue or are bothersome): - diarrhea - nausea or stomach upset - white patches or sores in the mouth What may interact with this medicine? Do not take this medicine with any of the following medications: cisapride droperidol terfenadine tizanidine This medicine may also interact with the following medications: antacids caffeine cyclosporin didanosine (ddI) buffered tablets or powder medicines for diabetes medicines for inflammation like ibuprofen, naproxen methotrexate multivitamins omeprazole phenytoin probenecid sucralfate theophylline warfarin What if I miss a dose? If you miss a dose, take it as soon as you can. If it is almost time for your next dose, take only that dose. Do not take double or extra doses. Where should I keep my medicine? Keep out of the reach of children. Store at room temperature below 30 degrees C (86 degrees F). Keep container tightly closed. Throw away any unused medicine after the expiration date. What should I tell my health care provider before I take this medicine? They need to know if you have any of these conditions: -bone problems -cerebral disease -joint problems -irregular heartbeat -kidney disease -liver disease -myasthenia gravis -seizure disorder -tendon problems -an unusual or allergic reaction to ciprofloxacin, other antibiotics or medicines, foods, dyes, or preservatives - or trying to get -breast-feeding What should I watch for while using this medicine? Tell your doctor or health care transitions manager if your symptoms do not improve. Do not treat diarrhea with over the counter products. Contact your doctor if you have diarrhea that lasts more than 2 days or if it is severe and watery. You may get drowsy or dizzy. Do not drive, use machinery, or do anything that needs mental alertness until you know how this medicine affects you. Do not stand or sit up quickly, especially if you are an older patient. This reduces the risk of dizzy or fainting spells. This medicine can make you more sensitive to the sun. Keep out of the sun. If you cannot avoid being in the sun, wear protective clothing and use sunscreen. Do not use sun lamps or tanning beds/booths. Avoid antacids, aluminum, calcium, iron, magnesium, and zinc products for 6 hours before and 2 hours after taking a dose of this medicine. Dicyclomine Hydrochloride Oral tablet What is this medicine? DICYCLOMINE (dye TASIA grajeda) is used to treat bowel problems including irritable bowel syndrome. How should I use this medicine? Take this medicine by mouth with a glass of water. Follow the directions on the prescription label. It is best to take this medicine on an empty stomach, 30 minutes to 1 hour before meals. Take your medicine at regular intervals. Do not take your medicine more often than directed. Talk to your binding stitcher regarding the use of this medicine in children. Special care may be needed. While this drug may be prescribed for children as young as 6 months of age for selected conditions, precautions do apply. Patients over 65 years old may have a stronger reaction and need a smaller dose. What side effects may I notice from receiving this medicine? Side effects that you should report to your doctor or health care transitions manager as soon as possible: agitation, nervousness, confusion difficulty swallowing dizziness, drowsiness fast or slow heartbeat hallucinations pain or difficulty passing urine Side effects that usually do not require medical attention (report to your doctor or health care transitions manager if they continue or are bothersome): constipation headache nausea or vomiting sexual difficulty What may interact with this medicine? amantadine antacids benztropine digoxin disopyramide medicines for allergies, colds and breathing difficulties medicines for alzheimer's disease medicines for anxiety or sleeping problems medicines for depression or psychotic disturbances medicines for diarrhea medicines for pain metoclopramide tegaserod What if I miss a dose? If you miss a dose, take it as soon as you can. If it is almost time for your next dose, take only that dose. Do not take double or extra doses. Where should I keep my medicine? Keep out of the reach of children. Store at room temperature below 30 degrees C (86 degrees F). Protect from light. Throw away any unused medicine after the expiration date. What should I tell my health care provider before I take this medicine? They need to know if you have any of these conditions: difficulty passing urine esophagus problems or heartburn glaucoma heart disease, or previous heart attack myasthenia gravis prostate trouble stomach infection, or obstruction ulcerative colitis an unusual or allergic reaction to dicyclomine, other medicines, foods, dyes, or preservatives or trying to get breast-feeding What should I watch for while using this medicine? You may get drowsy, dizzy, or have blurred vision. Do not drive, use machinery, or do anything that needs mental alertness until you know how this medicine affects you. To reduce the risk of dizzy or fainting spells, do not sit or stand up quickly, especially if you are an older patient. Alcohol can make you more drowsy, avoid alcoholic drinks. Stay out of bright light and wear sunglasses if this medicine makes your eyes more sensitive to light. Avoid extreme heat (hot tubs, saunas). This medicine can cause you to sweat less than normal. Your body temperature could increase to dangerous levels, which may lead to heat stroke. Antacids can stop this medicine from working. If you get an upset stomach and want to take an antacid, make sure there is an interval of at least 1 to 2 hours before or after you take this medicine. Your mouth may get dry. Chewing sugarless gum or sucking hard candy, and drinking plenty of water may help. Contact your doctor if the problem does not go away or is severe. Tramadol Hydrochloride Oral tablet What is this medicine? TRAMADOL (TRA ma dole) is a pain reliever. It is used to treat moderate to severe pain in adults. How should I use this medicine? Take this medicine by mouth with a full glass of water. Follow the directions on the prescription label. If the medicine upsets your stomach, take it with food or milk. Do not take more medicine than you are told to take. Talk to your binding stitcher regarding the use of this medicine in children. Special care may be needed. What side effects may I notice from receiving this medicine? Side effects that you should report to your doctor or health care transitions manager as soon as possible: allergic reactions like skin rash, itching or hives, swelling of the face, lips, or tongue breathing difficulties, wheezing confusion itching light headedness or fainting spells redness, blistering, peeling or loosening of the skin, including inside the mouth seizures Side effects that usually do not require medical attention (report to your doctor or health care transitions manager if they continue or are bothersome): constipation dizziness drowsiness headache nausea, vomiting What may interact with this medicine? Do not take this medicine with any of the following medications: MAOIs like Carbex, Eldepryl, Marplan, Nardil, and Parnate This medicine may also interact with the following medications: alcohol or medicines that contain alcohol antihistamines benzodiazepines bupropion carbamazepine or oxcarbazepine clozapine cyclobenzaprine digoxin furazolidone linezolid medicines for depression, anxiety, or psychotic disturbances medicines for migraine headache like almotriptan, eletriptan, frovatriptan, naratriptan, rizatriptan, sumatriptan, zolmitriptan medicines for pain like pentazocine, buprenorphine, butorphanol, meperidine, nalbuphine, and propoxyphene medicines for sleep muscle relaxants naltrexone phenobarbital phenothiazines like perphenazine, thioridazine, chlorpromazine, mesoridazine, fluphenazine, prochlorperazine, promazine, and trifluoperazine procarbazine warfarin What if I miss a dose? If you miss a dose, take it as soon as you can. If it is almost time for your next dose, take only that dose. Do not take double or extra doses. Where should I keep my medicine? Keep out of the reach of children. Store at room temperature between 15 and 30 degrees C (59 and 86 degrees F). Keep container tightly closed. Throw away any unused medicine after the expiration date. What should I tell my health care provider before I take this medicine? They need to know if you have any of these conditions: brain tumor depression drug abuse or addiction head injury if you frequently drink alcohol containing drinks kidney disease or trouble passing urine liver disease lung disease, asthma, or breathing problems seizures or epilepsy suicidal thoughts, plans, or attempt; a previous suicide attempt by you or a family member an unusual or allergic reaction to tramadol, codeine, other medicines, foods, dyes, or preservatives or trying to get breast-feeding What should I watch for while using this medicine? Tell your doctor or health care transitions manager if your pain does not go away, if it gets worse, or if you have new or a different type of pain. You may develop tolerance to the medicine. Tolerance means that you will need a higher dose of the medicine for pain relief. Tolerance is normal and is expected if you take this medicine for a long time. Do not suddenly stop taking your medicine because you may develop a severe reaction. Your body becomes used to the medicine. This does NOT mean you are addicted. Addiction is a behavior related to getting and using a drug for a non-medical reason. If you have pain, you have a medical reason to take pain medicine. Your doctor will tell you how much medicine to take. If your doctor wants you to stop the medicine, the dose will be slowly lowered over time to avoid any side effects. You may get drowsy or dizzy. Do not drive, use machinery, or do anything that needs mental alertness until you know how this medicine affects you. Do not stand or sit up quickly, especially if you are an older patient. This reduces the risk of dizzy or fainting spells. Alcohol can increase or decrease the effects of this medicine. Avoid alcoholic drinks. You may have constipation. Try to have a bowel movement at least every 2 to 3 days. If you do not have a bowel movement for 3 days, call your doctor or health care transitions manager. Your mouth may get dry. Chewing sugarless gum or sucking hard candy, and drinking plenty of water may help. Contact your doctor if the problem does not go away or is severe. Metoclopramide Hydrochloride Oral tablet What is this medicine? METOCLOPRAMIDE (met oh kloe PRA mide) is used to treat the symptoms of gastroesophageal reflux disease (GERD) like heartburn. It is also used to treat people with slow emptying of the stomach and intestinal tract. How should I use this medicine? Take this medicine by mouth with a glass of water. Follow the directions on the prescription label. Take this medicine on an empty stomach, about 30 minutes before eating. Take your doses at regular intervals. Do not take your medicine more often than directed. Do not stop taking except on the advice of your doctor or health care transitions manager. A special MedGuide will be given to you by the pharmacist with each prescription and refill. Be sure to read this information carefully each time. Talk to your binding stitcher regarding the use of this medicine in children. Special care may be needed. What side effects may I notice from receiving this medicine? Side effects that you should report to your doctor or health care transitions manager as soon as possible: allergic reactions like skin rash, itching or hives, swelling of the face, lips, or tongue abnormal production of milk in females breast enlargement in both males and females change in the way you walk difficulty moving, speaking or swallowing drooling, lip smacking, or rapid movements of the tongue excessive sweating fever involuntary or uncontrollable movements of the eyes, head, arms and legs irregular heartbeat or palpitations muscle twitches and spasms unusually weak or tired Side effects that usually do not require medical attention (report to your doctor or health care transitions manager if they continue or are bothersome): change in sex drive or performance depressed mood diarrhea difficulty sleeping headache menstrual changes restless or nervous What may interact with this medicine? acetaminophen cyclosporine digoxin medicines for blood pressure medicines for diabetes, including insulin medicines for hay fever and other allergies medicines for depression, especially an Monoamine Oxidase Inhibitor (MAOI) medicines for Parkinson's disease, like levodopa medicines for sleep or for pain tetracycline What if I miss a dose? If you miss a dose, take it as soon as you can. If it is almost time for your next dose, take only that dose. Do not take double or extra doses. Where should I keep my medicine? Keep out of the reach of children. Store at room temperature between 20 and 25 degrees C (68 and 77 degrees F). Protect from light. Keep container tightly closed. Throw away any unused medicine after the expiration date. What should I tell my health care provider before I take this medicine? They need to know if you have any of these conditions: breast cancer depression diabetes heart failure high blood pressure kidney disease liver disease Parkinson's disease or a movement disorder pheochromocytoma seizures stomach obstruction, bleeding, or perforation an unusual or allergic reaction to metoclopramide, procainamide, sulfites, other medicines, foods, dyes, or preservatives or trying to get breast-feeding What should I watch for while using this medicine? It may take a few weeks for your stomach condition to start to get better. However, do not take this medicine for longer than 12 weeks. The longer you take this medicine, and the more you take it, the greater your chances are of developing serious side effects. If you are an elderly patient, a female patient, or you have diabetes, you may be at an increased risk for side effects from this medicine. Contact your doctor immediately if you start having movements you cannot control such as lip smacking, rapid movements of the tongue, involuntary or uncontrollable movements of the eyes, head, arms and legs, or muscle twitches and spasms. Patients and their families should watch out for worsening depression or thoughts of suicide. Also watch out for any sudden or severe changes in feelings such as feeling anxious, agitated, panicky, irritable, hostile, aggressive, impulsive, severely restless, overly excited and hyperactive, or not being able to sleep. If this happens, especially at the beginning of treatment or after a change in dose, call your doctor. Do not treat yourself for high fever. Ask your doctor or health care transitions manager for advice. You may get drowsy or dizzy. Do not drive, use machinery, or do anything that needs mental alertness until you know how this drug affects you. Do not stand or sit up quickly, especially if you are an older patient. This reduces the risk of dizzy or fainting spells. Alcohol can make you more drowsy and dizzy. Avoid alcoholic drinks. You have been given the following additional information: Vomiting (6Y-Adult) Hematuria Bladder Infection, Male (Adult) Diet, Clear Liquid Diet, [place] (Adult) Diet, Clear Liquid Ciprofloxacin Hydrochloride Oral tablet Dicyclomine Hydrochloride Oral tablet Tramadol Hydrochloride Oral tablet Metoclopramide Hydrochloride Oral tablet (Electronically signed by Temi Wynn A.R.N.P. 11/14/2016 23:00)
--- NOTE | 2016-11-14 23:44 | ED MED RECONCILIATION SUMMARY ---
Patient: NANCY BLEDSOE JR Medication Reconciliation Report [facility] VisitID: [id number] [place] [address] 41y, M Registration Date/Time: 11/14/2016 Weight: 81.6 kg Height/Length: 71 in. BMI: 25.1 ALLERGIES: No Known Drug Allergy The patient's Home Medications are listed below: THE FOLLOWING MEDICATIONS NEED TO BE RECONCILED: MiraLax Oral Ranitidine HCl Oral Thonzylamine-Chlophedianol Oral The source(s) of the original Home Medication information: patient The following Medications were given to the patient in the Emergency Department: Toradol [IVP] IVP 30 mg, administered: 11/14/2016 8:26:00 PM Zofran [IVP] IVP 4 mg, administered: 11/14/2016 8:32:00 PM IV NS IV Fluids bolus 0, then 1000 mL/hr, administered: 11/14/2016 8:32:00 PM Reglan [IVP] IVP 10 mg, administered: 11/14/2016 10:50:00 PM Dilaudid [IVP] IVP 1 mg, administered: 11/14/2016 10:59:00 PM GI COCKTAIL WHITE [PO] PO 30 mL, administered: 11/14/2016 11:05:00 PM The following Medications were prescribed to the patient: Cipro 500 mg: take 1 tab orally every 12 hours for 10 days. Dispense twenty (20). No refills. Substitution is permissible. -- Temi Wynn A.R.N.P. Bentyl 20 mg tablets: take 1 orally every 6 hours as needed. Dispense thirty (30). No refills. Substitution is permissible. -- Temi Wynn A.R.N.P. Ultram 50 mg tablets: take 1-2 orally every 6 hours as needed for pain. Dispense twenty (20). No refills. Substitution is permissible. -- Temi Wynn A.R.N.P. Reglan 10 mg tablets: take 1 orally every 6 hours as needed for nausea or vomiting. Dispense twenty (20). No refills. -- Temi Wynn A.R.N.P.
--- NOTE | 2016-11-14 23:44 | ED MAR SUMMARY ---
..... Medication Administration Record [facility] [address] [place] [address] Patient: NANCY BLEDSOE Visit ID: [id number] 41y, M Weight: 81.6 kg Height/Length: 71 in BMI: 25.1 ALLERGIES: No Known Drug Allergy Given 20:26 11/14/2016 Chhaya Matthews R.N. Medication Administered: TORADOL [IVP], Dose: 30 mg IVP over 30 second(s), Site: #1. Medication Ordered: Toradol IV 30 mg (NOW). Given 20:32 11/14/2016 Chhaya Matthews R.N. Medication Administered: ZOFRAN [IVP] (ONDANSETRON HCL), Dose: 4 mg IVP over 2 minute(s), Site: #1 left forearm. Medication Ordered: Zofran IV 4 mg (NOW). Start 20:32 11/14/2016 Chhaya Matthews R.N., Stop 21:29 11/14/2016 Mushtaq Horton R.N. Medication Administered: IV NS (SALINE), Dose: IV Fluids over 1 hour(s), Rate: 1000 mL/hr, Dispensed: 1000 mL bag, Site: #1 left forearm. Medication Ordered: IV NS : initial bolus 1000 mL (1000 mL/hr), then none - (NOW). Given 22:50 11/14/2016 Parminder Aguilar R.N. Medication Administered: REGLAN [IVP] (METOCLOPRAMIDE HCL), Dose: 10 mg IVP over 2 minute(s), Site: #1 left forearm. Medication Ordered: Reglan IV 10 mg (NOW). Given 22:59 11/14/2016 Parminder Aguilar R.N. Medication Administered: DILAUDID [IVP] (HYDROMORPHONE HCL PF), Dose: 1 mg IVP over 2 minute(s), Site: #1 left forearm. Medication Ordered: Dilaudid IV 1 mg (HIGH ALERT MEDICATION, NOW). Given 23:05 11/14/2016 Parminder Aguilar R.N. Medication Administered: GI COCKTAIL WHITE [PO] (SIMETHICONE), Dose: 30 mL Oral Suspension PO. Medication Ordered: GI Cocktail WHITE PO 30 mL with Lidocaine Viscous Mouth/Throat 15 mL, Maalox Plus Oral 15 mL (NOW).
== END 2016-11-14 23:10 | disposition home or self-care (01) ==
LOC: ED SRH 19:31
DX: R11.2 Nausea with vomiting, unspecified (principal); R31.29 Other microscopic hematuria; K21.9 Gastro-esophageal reflux disease without esophagitis; Z87.891 Personal history of nicotine dependence
CPT/HCPCS: 90004; 90100; 92235; 92530; 92760; 92761; 92762; 92763; 92764; 92765; 92766; 92767; 95059